=== PATIENT | male | born 1975 | race Caucasian/White ===

== ENCOUNTER 2023-11-29 06:32 | Day surgery (SDC) | payer BC, SELFPAY ==
[2023-11-29 09:10] VITALS: BMI 39.1
[2023-11-29 09:20] VITALS: BP 123/84
[2023-11-29 09:25] VITALS: BMI 39.1
[2023-11-29 11:07] VITALS: BP 111/74
[2023-11-29 11:22] VITALS: BP 113/74
[2023-11-29 11:37] VITALS: BP 123/74
== END 2023-11-29 11:37 | disposition home or self-care (01) ==
LOC: SDS 06:32
PROVIDERS: ATTENDING PHYSICIAN Internal Medicine Gastroenterology
DX: Z12.11 Encounter for screening for malignant neoplasm of colon (principal); K63.89 Other specified diseases of intestine; K57.30 Diverticulosis of large intestine without perforation or abscess without bleeding; K64.0 First degree hemorrhoids; Z86.010 Personal history of colon polyps; Z98.890 Other specified postprocedural states
CPT/HCPCS: 45380; 88305

== ENCOUNTER 2025-01-07 06:16 | Day surgery (SDC) | payer BC, SELFPAY | END 2025-01-07 10:33 | disposition home or self-care (01) | LOC: GI 06:16 | PROVIDERS: ATTENDING PHYSICIAN Surgery; FAMILY PHYSICIAN Family Medicine | DX: Z12.11 Encounter for screening for malignant neoplasm of colon (principal); K57.30 Diverticulosis of large intestine without perforation or abscess without bleeding; K64.8 Other hemorrhoids; Z86.0100 Personal history of colon polyps, unspecified | CPT/HCPCS: G0105 ==